=== PATIENT | female | born 1980 | race Caucasian/White ===

== ENCOUNTER 2019-12-21 23:55 | Emergency (ER) | payer BC ==
[2019-12-22 00:02] VITALS: BP 106/75; PULSE 65; TEMP 97.7; BMI 21.6
--- NOTE | 2019-12-22 00:08 | PDOC ---
History of Present Illness - General Chief Complaint: Injury Stated Complaint: RIGHT FOOT AND ANKLE PAIN Time Seen by Provider: 12/22/19 00:02 History Source: Patient Exam Limitations: No Limitations - History of Present Illness Initial Comments: 12/22/19 00:07 This is a 39-year-old female who comes in complaining of right foot pain. Patient was taking her child when she fell off the couch and felt a pop in the top of her foot. Patient is complaining of pain to the top of the foot especially when she ambulates. Patient states she is unable to bear weight. Allergies: as per nursing notes Past Medical History: none Social history: Lives with family. No smoking. No alcohol. No illicit drugs. Surgical history: None General: No fevers or chills, no weakness, no weight loss HEENT: No change in vision. No sore throat,. No ear pain CardioVascular: no chest discomfort. No shortness of breath Respiratory:No cough, or wheezing. Gastrointestinal: no nausea, vomiting, diarrhea or constipation, No rectal bleeding Genitourinary: No dysuria, hematuria, or frequency Musculoskeletal: No joint, pain to the top of the foot Neurologic: No headache, vertigo, dizziness or loss of consciousness Psychiatric: nor depression Skin: No rashes or easy bruising Endocrine: no increased thirst or abnormal weight change Allergic: no skin or latex allergy All other systems reviewed and normal GENERAL: The patient is awake, alert, and fully oriented, in no acute distress. HEENT:Head is normal with no signs of trauma. Eyes: Pupils equal, round and reactive to light, Ears, and Throat are normal. Neck is supple. No Lymphadenopathy. EXTREMITIES:atraumatic, Normal range of motion, no edema. There is some tenderness on the dorsum of the foot with some mild soft tissue swelling. There is no bony tenderness of the ankle but there is some bony tenderness of the underlying bones of the foot. Neurovascular is intact. NEUROLOGICAL: Normal speech, normal gait. PSYCH: Normal mood, normal affect. SKIN: Warm, Dry, normal turgor, no rashes or lesions noted., 12/22/19 00:23 X-ray negative for any acute pathology Assessment and plan: This is a 3-year-old female who injured her right foot while roughhousing with her child. Patient had an x-ray that was negative. Patient given an Lukas wrap and crutches and discharged home. Past History - Past Medical History Allergies/Adverse Reactions: Allergies Allergy/AdvReac Type Severity Reaction Status Date / Time No Known Drug Allergies Allergy Verified 12/21/19 23:56 Home Medications: Ambulatory Orders NK [No Known Home Medication] 12/21/19 Asthma: No Cancer: No Cardiac Disorders: No COPD: No Diabetes: No HTN: No Seizures: No Thyroid Disease: No - Psycho Social/Smoking Cessation Hx Smoking Status: No Smoking History: Never smoked Have you smoked in the past 12 months: No Number of Cigarettes Smoked Daily: 0 Information on smoking cessation initiated: No Hx Alcohol Use: No Drug/Substance Use Hx: No Substance Use Type: Alcohol Hx Substance Use Treatment: No *Physical Exam - Vital Signs Last Vital Signs Temp Pulse Resp BP Pulse Ox 97.7 F 65 16 106/75 100 12/21/19 23:58 12/21/19 23:58 12/21/19 23:58 12/21/19 23:58 12/21/19 23:58 Discharge - Discharge Information Problems reviewed: Yes Clinical Impression/Diagnosis: Right foot sprain Qualifiers: Encounter type: initial encounter Qualified Code(s): S93.601A - Unspecified sprain of right foot, initial encounter Condition: Stable Disposition: HOME - Admission No - Follow up/Referral - Patient Discharge Instructions Additional Instructions: Tylenol or Motrin as needed for pain. Return to the emergency department immediately with ANY new, persistent or worsening symptoms. Continue any medications as previously prescribed by your physician. You should follow up with your primary doctor as soon as possible regarding today's emergency department visit. . Please make sure your doctor reviews the results of your emergency evaluation. Thank you for coming to the Emergency Department today for your care. It was a pleasure to see you today. Please note that your evaluation is INCOMPLETE until you follow-up with your doctor. - Post Discharge Activity
== END 2019-12-22 00:33 | disposition home or self-care (01) ==
LOC: FER 23:55
DX: S93.601A Unspecified sprain of right foot, initial encounter (principal); X58.XXXA Exposure to other specified factors, initial encounter; Y93.89 Activity, other specified; Y92.89 Other specified places as the place of occurrence of the external cause
CPT/HCPCS: 73630-TC-RT-FY; 99283-25